=== PATIENT | female | born 1950 | race African-American/Black ===

== ENCOUNTER 2016-11-26 11:37 | Outpatient (CLI) | payer MEDICARE, MEDICAID ==
[2016-11-26 12:21] LABS: ALT (SGPT) 39 U/L (0-55); AST (SGOT) 55 U/L (5-34); Alkaline Phosphatase 124 U/L (40-150); Anion Gap 11 mmol/L (10-20); BUN (Urea Nitrogen) 10 mg/dL (9.8-20.1); Bilirubin, Total 0.3 mg/dL (0.2-1.2); Calc. Creatinine Clearance 0 mL/min (70-130); Carbon Dioxide 25 mmol/L (23-31); Chloride 108 mmol/L (98-107); Estimated GFR-MDRD Greater than 90; Globulin 3.7 g/dL (2.4-3.5); Protein, Total 7.4 g/dL (5.8-8.1)
[2016-11-26 17:53] LABS: Microalbumin Urine 1.1 mg/dL (0.5-50.0)
[2016-11-28 09:11] LABS: Hemoglobin A1c 5.5 % (4.0-6.0)
== END 2016-11-26 11:38 | disposition home or self-care (01) ==
LOC: BURLAB 11:37
PROVIDERS: ATTEND Internal Medicine Endocrinology, Diabetes & Metabolism
DX: E78.5 Hyperlipidemia, unspecified (principal); E11.9 Type 2 diabetes mellitus without complications; I10 Essential (primary) hypertension
CPT/HCPCS: 36415; 80053; 82043; 82570; 83036; 85018

== ENCOUNTER 2017-01-17 08:15 | Outpatient (CLI) | payer MEDICARE, MEDICAID ==
[2017-01-17 08:42] LABS: ALT (SGPT) 33 U/L (0-55); AST (SGOT) 41 U/L (5-34); Alkaline Phosphatase 130 U/L (40-150); Anion Gap 15 mmol/L (10-20); BUN (Urea Nitrogen) 13 mg/dL (9.8-20.1); Bilirubin, Direct 0.3 mg/dL (0.1-0.3); Bilirubin, Total 0.5 mg/dL (0.2-1.2); Calc. Creatinine Clearance 0 mL/min (70-130); Calcium 9.1 mg/dL (7.8-10.44); Carbon Dioxide 26 mmol/L (23-31); Chloride 102 mmol/L (98-107); Estimated GFR-MDRD Greater than 90; LDL Cholesterol, Calculated 66 mg/dL; Protein, Total 7.5 g/dL (5.8-8.1)
== END 2017-01-17 08:16 | disposition home or self-care (01) ==
LOC: BURLAB 08:15
PROVIDERS: ATTEND Internal Medicine Cardiovascular Disease
DX: E78.00 Pure hypercholesterolemia, unspecified (principal); J44.9 Chronic obstructive pulmonary disease, unspecified; Z95.1 Presence of aortocoronary bypass graft
CPT/HCPCS: 36415; 80048; 80061; 80076

== ENCOUNTER 2017-03-23 08:31 | Outpatient (CLI) | payer MEDICARE, MEDICAID ==
[2017-03-23 09:11] LABS: ALT (SGPT) 34 U/L (8-55); AST (SGOT) 52 U/L (5-34); Albumin 3.6 g/dL (3.4-4.8); Alkaline Phosphatase 113 U/L (40-150); Anion Gap 13 mmol/L (10-20); BUN (Urea Nitrogen) 10 mg/dL (9.8-20.1); Bilirubin, Total 0.6 mg/dL (0.2-1.2); Calc. Creatinine Clearance 0 mL/min (70-130); Calcium 8.9 mg/dL (7.8-10.44); Carbon Dioxide 24 mmol/L (23-31); Cardiac Risk 1.9 (Less than 4.5); Chloride 106 mmol/L (98-107); Cholesterol 162 mg/dL (< 200 Desired); Estimated GFR-MDRD Greater than 90; Globulin 3.4 g/dL (2.4-3.5); Glucose 97 mg/dL (80-115); HDL Cholesterol 84 mg/dL (>60 Neg Risk); LDL Cholesterol, Calculated 58 mg/dL; Potassium 4.3 mmol/L (3.5-5.1); Sodium 139 mmol/L (136-145); Triglycerides 102 mg/dL (Less than 150)
[2017-03-23 09:20] LABS: Anisocytosis SLIGHT = 6-15 cells (100X) (0-5/hpf); Eosinophils 1 % (0-10); Hemoglobin 14.3 g/dL (12.0-16.0); Howell Jolly Bodies SLIGHT = 1-2 cells (100X) (None Seen); Lymphocytes 55 % (21-51); MDiff Complete? YES; Mean Corpuscular HGB CONC 34.4 g/dL (32.0-36.0); Mean Corpuscular Hemoglobin 30.5 pg (27.0-31.0); Mean Corpuscular Volume 88.5 fl (81.0-99.0); Mean Platelet Volume 6.3 fL (7.4-10.4); Monocytes 7 % (0-10); Neutrophil 37 % (42-75); PLT Morphology Comment Appears Adequate; Platelet Count 192 thou/uL (130-400); RBC Distribution Width 14.4 % (11.5-14.5); Red Blood Cell (RBC) Count 4.68 mill/uL (4.20-5.40); White Blood Cell (WBC) Count 4.9 thou/uL (4.8-10.8)
== END 2017-03-23 08:32 | disposition home or self-care (01) ==
LOC: BURLAB 08:31
PROVIDERS: ATTEND Internal Medicine Endocrinology, Diabetes & Metabolism
DX: E11.9 Type 2 diabetes mellitus without complications (principal); E78.5 Hyperlipidemia, unspecified; I10 Essential (primary) hypertension
CPT/HCPCS: 36415; 80053; 80061; 83036; 85025

== ENCOUNTER 2017-08-06 08:45 | Outpatient (CLI) | payer MEDICARE, MEDICAID ==
[2017-08-06 09:35] LABS: ALT (SGPT) 26 U/L (8-55); AST (SGOT) 43 U/L (5-34); Albumin 3.5 g/dL (3.4-4.8); Alkaline Phosphatase 132 U/L (40-150); Anion Gap 12 mmol/L (10-20); BUN (Urea Nitrogen) 8 mg/dL (9.8-20.1); Bilirubin, Direct 0.3 mg/dL (0.1-0.3); Bilirubin, Total 0.5 mg/dL (0.2-1.2); Calc. Creatinine Clearance 0 mL/min (70-130); Calcium 8.8 mg/dL (7.8-10.44); Carbon Dioxide 24 mmol/L (23-31); Cardiac Risk 2.3 (Less than 4.5); Chloride 108 mmol/L (98-107); Cholesterol 141 mg/dl (< 200 Desired); Estimated GFR-MDRD Greater than 90; Glucose 114 mg/dL (80-115); HDL Cholesterol 61 mg/dL (>60 Neg Risk); LDL Cholesterol, Calculated 56 mg/dL; Potassium 4.2 mmol/L (3.5-5.1); Protein, Total 6.9 g/dL (6.0-8.3); Sodium 140 mmol/L (136-145); Triglycerides 122 mg/dL (Less than 150)
== END 2017-08-06 08:46 | disposition home or self-care (01) ==
LOC: BURLAB 08:45
PROVIDERS: ATTEND Internal Medicine Cardiovascular Disease
DX: E78.2 Mixed hyperlipidemia (principal); I10 Essential (primary) hypertension
CPT/HCPCS: 36415; 80048; 80061; 80076

== ENCOUNTER 2019-04-13 13:03 | Outpatient (CLI) | payer MEDICARE, MEDICAID ==
--- NOTE | 2019-04-13 13:50 | RAD ---
RIGHT KNEE 2 VIEWS: Date: 04/13/19 FINDINGS/IMPRESSION: No fracture, dislocation, or bony destruction seen. No significant osteophytosis is identified. No gregorio int effusion is seen. POS: [facility]
--- NOTE | 2019-04-13 13:51 | RAD ---
LEFT HUMERUS 2 VIEWS: Date: 04/13/19 HISTORY: Left arm pain. FINDINGS/IMPRESSION: The left humerus appears intact. POS: [facility]
--- NOTE | 2019-04-13 14:01 | RAD ---
LEFT KNEE 2 VIEWS: DATE: 04/13/19 HISTORY: Pain in left knee. FINDINGS/IMPRESSION: No fracture, dislocation, or bony destruction is seen. No significant osteophytosis is identified. No joint effusion is seen. POS: [facility]
--- NOTE | 2019-04-14 08:20 | RAD ---
LEFT SHOULDER 3 VIEWS: HISTORY: Left shoulder pain. FINDINGS/IMPRESSION: There are degenerative changes in the acromioclavicular joint. No acute fracture or dislocation or b serina destruction is identified. There are postop changes in the cervical spine and the sternum. POS: [facility]
== END 2019-04-13 13:04 | disposition home or self-care (01) ==
LOC: BURRAD 13:03
PROVIDERS: ATTEND Family Medicine
DX: M25.561 Pain in right knee (principal); M25.562 Pain in left knee; M25.512 Pain in left shoulder; M79.622 Pain in left upper arm; M19.012 Primary osteoarthritis, left shoulder; Z98.890 Other specified postprocedural states

== ENCOUNTER 2019-06-08 10:20 | Outpatient (CLI) | payer MEDICARE, MEDICAID ==
--- NOTE | 2019-06-08 14:41 | RAD ---
3 views cervical spine: 06/08/2019 COMPARISON: 03/22/2016 HISTORY: Cervical disc disorder, prior cervical spine surgery FINDINGS: The open-mouth odontoid view demonstrates a normal-appearing dens and C1-2 articulation. Th ere is disc space narrowing with degenerative endplate change and anterior osteophyte formation at C2-3, C3-4 and C6-7. Anterior fusion hardware is noted at the C4-5/C5-6 levels, unchanged when compar ed to the prior exam. There is no prevertebral soft tissue swelling. There is mild stable anterolisthesis of C7 on T1 measuring approximately 4 mm. There is multilevel mid cervical spine facet and uncovertebral osteophyte formation noted bilaterally . IMPRESSION: Postoperative and degenerative changes within the cervical spine as detailed above, not s ignificantly changed when compared to the prior examination.
== END 2019-06-08 10:21 | disposition home or self-care (01) ==
LOC: BURRAD 10:20
PROVIDERS: ATTEND Family Medicine
DX: M50.90 Cervical disc disorder, unspecified, unspecified cervical region (principal); M47.812 Spondylosis without myelopathy or radiculopathy, cervical region; Z98.890 Other specified postprocedural states
CPT/HCPCS: 72040

== ENCOUNTER 2020-01-26 10:51 | Outpatient (CLI) | payer MEDICARE, MEDICAID ==
--- NOTE | 2020-01-26 11:16 | RAD ---
Exam:4 views right HISTORY: Acute knee pain. COMPARISON: None FINDINGS: No joint effusion. Preserved joint spaces. No fracture or malalignment. IMPRESSION: Unremarkable 4 views right knee.
== END 2020-01-26 10:52 | disposition home or self-care (01) ==
LOC: BURRAD 10:51
PROVIDERS: ATTEND Family Medicine
DX: M25.561 Pain in right knee (principal)

== ENCOUNTER 2022-06-19 10:09 | Outpatient (CLI) | payer OTHER | END 2022-06-19 10:10 | disposition home or self-care (01) | LOC: BURRAD 10:09 | PROVIDERS: ATTEND Family Medicine | DX: M47.816 Spondylosis without myelopathy or radiculopathy, lumbar region (principal); M50.90 Cervical disc disorder, unspecified, unspecified cervical region; M51.36 Other intervertebral disc degeneration, lumbar region; M43.17 Spondylolisthesis, lumbosacral region; M50.31 Other cervical disc degeneration, high cervical region | CPT/HCPCS: 72040; 72100 ==

== ENCOUNTER 2023-03-18 12:13 | Outpatient (CLI) | payer OTHER | END 2023-03-18 12:14 | disposition home or self-care (01) | LOC: BURRAD 12:13 | PROVIDERS: ATTEND Family Medicine | DX: M47.816 Spondylosis without myelopathy or radiculopathy, lumbar region (principal) | CPT/HCPCS: 72110 ==

== ENCOUNTER 2023-05-30 09:45 | Emergency (ER) | payer MEDICARE, OTHER ==
[2023-05-30] MEDS ORDERED: Aspirin Chewable 81 MG TAB ONE ×2 (10:06→10:15)
[2023-05-30] MEDS ORDERED: Morphine 2 MG/ML VIAL ONE (10:06)
[2023-05-30] MEDS ORDERED: Ondansetron PF 4 MG/2 ML Vial ONE (10:15)
[2023-05-30] MEDS ORDERED: Nitroglycerin 50 MG/250 ML BOT ONE (10:15)
[2023-05-30] MEDS ORDERED: Nitroglycerin 0.4 MG TAB 1 EACH ONE ×2 (10:15→11:08)
[2023-05-30] MEDS ORDERED: Metoprolol Tartrate 5 MG/5 ML VIAL ONE (10:15)
[2023-05-30] MEDS ORDERED: Heparin 10,000 UNITS/ 10 ML VIAL ONE ×2 (10:15→10:45)
[2023-05-30] MEDS ORDERED: Heparin 25,000 UNITS/D5W 500 ml bag ONE (10:15)
[2023-05-30 10:40] LABS: Hemoglobin 9.1 g/dL (12.0-16.0); Mean Corpuscular HGB CONC 29.9 g/dL (32.0-36.0); Mean Corpuscular Hemoglobin 21.2 pg (27.0-31.0); Mean Corpuscular Volume 70.9 fl (78.0-98.0); Mean Platelet Volume 6.4 fL (7.4-10.4); Platelet Count 286 10x3/uL (130-400); RBC Distribution Width 23.3 % (11.5-14.5); White Blood Cell (WBC) Count 6.6 10x3/uL (4.8-10.8)
[2023-05-30] MEDS ORDERED: Lidocaine 1% (PF) 30 ML VIAL ONE (10:45)
[2023-05-30 10:46] LABS: Anisocytosis SLIGHT = 6-15 cells (100X) (0-5/hpf); Hypochromia SLIGHT = 6-15 cells (100X) (0-5/hpf); Lymphocytes 23 % (21-51); MDiff Complete? YES; Microcytosis SLIGHT = 6-15 cells (100X) (0-5/hpf); Monocytes 7 % (0-10); Neutrophil 70 % (42-75); Nucleated RBC (Manual Ct) 2 % (0); Platelet Adequacy Comment Appears Adequate
[2023-05-30 10:47] LABS: ALT (SGPT) 28 U/L (8-55); AST (SGOT) 120 U/L (5-34); Albumin 3.3 g/dL (3.4-4.8); Alkaline Phosphatase 91 U/L (40-110); Anion Gap 15 mmol/L (10-20); BUN (Urea Nitrogen) 11 mg/dL (9.8-20.1); Bilirubin, Total 0.5 mg/dL (0.2-1.2); Calc. Creatinine Clearance 0 mL/min (70-130); Calcium 8.1 mg/dL (7.8-10.44); Carbon Dioxide 22 mmol/L (23-31); Chloride 107 mmol/L (98-107); Estimated GFR 84; Glucose 144 mg/dL (83-110); Potassium 3.9 mmol/L (3.5-5.1); Protein, Total 6.3 g/dL (5.8-8.1); Sodium 140 mmol/L (136-145)
== END 2023-05-30 10:33 | disposition short-term general hospital (02) ==
LOC: BURERS 09:45
DX: I21.3 ST elevation (STEMI) myocardial infarction of unspecified site (principal); E11.9 Type 2 diabetes mellitus without complications; I10 Essential (primary) hypertension; I25.10 Atherosclerotic heart disease of native coronary artery without angina pectoris; I25.2 Old myocardial infarction; G40.409 Other generalized epilepsy and epileptic syndromes, not intractable, without status epilepticus; J42 Unspecified chronic bronchitis; Z87.891 Personal history of nicotine dependence; Z95.1 Presence of aortocoronary bypass graft
CPT/HCPCS: 80053; 82553; 83880; 84484; 85025; 93005; 94760; 96365; 96375; 96376; J1644; J2001; J2272; J2405

== ENCOUNTER 2025-07-06 11:47 | Emergency (ER) | payer OTHER, MEDICAID ==
[2025-07-06 12:33] LABS: #Basophils 0.0 thou/uL (0.0-0.2); #Eosinophils 0.1 thou/uL (0.0-0.7); #Lymphocytes 1.8 thou/uL (1.20-3.40); #Monocytes 0.3 thou/uL (0.11-0.59); #Neutrophils 2.1 thou/uL (1.40-6.50); %Basophils 0.5 % (0.0-1.0); %Eosinophils 2.4 % (0.0-10.0); %Lymphocytes 41.4 % (21.0-51.0); %Monocytes 7.3 % (0.0-10.0); %Neutrophils 48.4 % (42.0-75.0); Hematocrit 34.1 % (36.0-47.0); Hemoglobin 12.1 g/dL (12.0-16.0); Mean Corpuscular Hemoglobin 31.0 pg (27.0-31.0); Mean Corpuscular Volume 87.2 fl (78.0-98.0); Platelet Count 145 10x3/uL (130-400); Red Blood Cell (RBC) Count 3.91 mill/uL (4.20-5.40); White Blood Cell (WBC) Count 4.4 10x3/uL (4.8-10.8)
[2025-07-06] MEDS ORDERED: Ondansetron PF 4 MG/2 ML Vial ONE (12:49)
[2025-07-06 12:50] LABS: ALT (SGPT) 19 U/L (Less than 34); AST (SGOT) 24 U/L (11-34); Albumin 3.9 g/dL (3.1-4.5); Alkaline Phosphatase 90 U/L (40-110); Anion Gap 13 mmol/L (10-20); BUN (Urea Nitrogen) 11 mg/dL (9.8-20.1); Bilirubin, Total 0.5 mg/dL (0.3-1.2); Calc. Creatinine Clearance 0 mL/min (70-130); Calcium 8.7 mg/dL (7.8-10.44); Carbon Dioxide 26 mmol/L (23-31); Chloride 108 mmol/L (98-107); Globulin 3.0 g/dL (2.4-3.5); Glucose 115 mg/dL (83-110); Potassium 4.2 mmol/L (3.5-5.1); Sodium 143 mmol/L (136-145)
[2025-07-06 12:51] LABS: Troponin I Less than 0.010 ng/mL (< 0.028)
[2025-07-06] MEDS ORDERED: Acetaminophen 500 MG TAB ONE (14:09)
== END 2025-07-06 14:26 | disposition home or self-care (01) ==
LOC: BURERS 11:47
DX: R11.2 Nausea with vomiting, unspecified (principal); I25.10 Atherosclerotic heart disease of native coronary artery without angina pectoris; E11.9 Type 2 diabetes mellitus without complications; I10 Essential (primary) hypertension; J44.9 Chronic obstructive pulmonary disease, unspecified; I25.2 Old myocardial infarction; Z87.891 Personal history of nicotine dependence
CPT/HCPCS: 36415; 71045; 74177; 80053; 84484; 85025; 93005; 96361; 96374; 99406; J2405; J7620

== ENCOUNTER 2025-08-18 16:38 | Emergency (ER) | payer OTHER, MEDICAID | END 2025-08-18 17:03 | disposition home or self-care (01) | LOC: BURERS 16:38 | DX: M43.6 Torticollis (principal); M54.2 Cervicalgia; I25.10 Atherosclerotic heart disease of native coronary artery without angina pectoris; I10 Essential (primary) hypertension; I25.2 Old myocardial infarction; Z87.891 Personal history of nicotine dependence | CPT/HCPCS: 99283 ==

== ENCOUNTER 2025-08-23 10:23 | Outpatient (CLI) | payer OTHER, MEDICAID | END 2025-08-23 10:24 | disposition home or self-care (01) | LOC: BURRAD 10:23 | PROVIDERS: ATTEND Family Medicine | DX: M54.2 Cervicalgia (principal); M47.812 Spondylosis without myelopathy or radiculopathy, cervical region; Z98.1 Arthrodesis status | CPT/HCPCS: 72050 ==